=== PATIENT | male | born 1950 | race Caucasian/White ===

== ENCOUNTER 2019-02-13 00:40 | Inpatient (IN) ==
[2019-02-13 01:38] LABS: Basophils # (auto) 0.02 K/uL (0-0.2); Basophils % (auto) 0.3 %; Eosinophils % (auto) 1.3 %; Hematocrit (blood only) 48.5 % (42-52); Hemoglobin 17.1 g/dL (14.0-18.0); Immature Granulocytes # (auto) 0.02 K/uL (0.00-0.02); Immature Granulocytes % (auto) 0.3 %; Lymphocytes # (auto) 2.09 K/uL (1.2-3.4); Lymphocytes % (auto) 26.6 %; Mean Corpuscular Hemoglobin 31.8 pg (25-34); Mean Corpuscular Hgb Conc 35.3 g/dL (32-36); Mean Corpuscular Volume 90.1 fL (80-100); Mean Platelet Volume 9.8 fL (7.4-10.4); Monocytes # (auto) 0.56 K/uL (0.11-0.59); Monocytes % (auto) 7.1 %; Neutrophils # (auto) 5.08 K/uL (1.4-6.5); Neutrophils % (auto) 64.4 %; Platelet Count 216 K/uL (130-400); RDW Coefficient of Variation 12.6 % (11.5-14.5); RDW Standard Deviation 41.1 fL (36.4-46.3); Red Blood Count 5.38 M/uL (4.7-6.1); White Blood Count 7.87 K/uL (4.8-10.8)
[2019-02-13 01:46] LABS: Alanine Aminotransferase 17 U/L (12-78); Albumin Level 3.9 gm/dl (3.4-5.0); Aspartate Aminotransferase 11 U/L (15-37); BUN Creatinine Ratio 8.5 (10-20); Blood Urea Nitrogen 11 mg/dl (7-18); Calcium 8.7 mg/dl (8.5-10.1); Carbon Dioxide 31 mmol/L (21-32); Chloride 102 mmol/L (98-107); Creatinine Clr Calc Pharmacy 63.6 ml/min; Est GFR (African American) 64.8; Est GFR (Non-African American) 55.9; Glucose 129 mg/dl (70-99); Lipase 209 U/L (73-393); Potassium 3.7 mmol/L (3.5-5.1); Sodium 139 mmol/L (136-145)
[2019-02-13 01:51] LABS: Albumin Globulin Ratio 1.1 (0.9-2); Alkaline Phosphatase 131 U/L (45-117); Bilirubin,Total 0.7 mg/dl (0.2-1); Globulin 3.7 gm/dl (2.5-4.0); Total Protein 7.6 gm/dl (6.4-8.2); Troponin I < 0.015 ng/ml (0-0.045)
--- NOTE | 2019-02-13 04:14 | History & Physical Report ---
Date of Service February 13, 2019 Assessment & Plan (1) Generalized weakness: Patient presents with persistent generalized weakness, dyspnea on exertion and family history of brother at a similar age recently requiring a stented coronary artery. The patient will be admitted to telemetry for serial cardiac enzymes, serial EKG's, cardiac rhythm monitoring and a 2-D echocardiogram with Dopplers. Check a fasting lipid panel, and hemoglobin A1c. Patient should have a stress echocardiogram done prior to discharge if the above work-up is negative. We will add a FLP, HbA1c, Lyme test, vitamin B12, folic acid, ESR and OSMANY to current laboratories. Present on Admission?: Yes (2) Dyspnea on exertion: See above Present on Admission?: Yes (3) Family history of coronary artery disease in brother: See above Present on Admission?: Yes (4) Syncope: Patient did present to the ED on 02/04/2019. Work-up at that time included a negative CT of head, and CTA of head and neck. He had no further syncopal or near syncopal symptoms since that time. Present on Admission?: Yes (5) GERD (gastroesophageal reflux disease): Change omeprazole to pantoprazole 40 mg daily for formulary interchange Present on Admission?: Yes History of Present Illness Chief Complaint: The patient presents to the emergency department with persistent generalized weakness and fatigue. He presented to the emergency department on 02/04/2019 due to a syncopal episode. Primary Care Provider: Frandy Larry MD The patient is a 68-year-old male with a past medical history including GERD and syncope, who presents to the emergency department with persistent generalized weakness and fatigue. He denies chest pain or shortness of breath at rest, but does report some mild dyspnea on exertion. He has a brother has had similar symptoms at age 66 who had recently gotten a coronary artery stent. He has a normal stress test several years ago. He does admit to being more sedentary. Allergies Allergy/AdvReac Type Severity Reaction Status Date / Time Penicillins Allergy Severe Unknown Verified 02/04/19 22:40 AMOXICILLIN -- HIVES AND Allergy Unknown Unknown Uncoded 02/04/19 22:40 SWELLING IN THROAT LORTAB DIZZY /MILD NAUSEA [id number] Allergy Unknown Unknown Uncoded 02/04/19 22:40 MAY HAVE VERY MILD LATEX Allergy Unknown Unknown Uncoded 02/04/19 22:40 SENSITIVITY FROM GLOVES AT WORK NKFA Allergy Unknown Unknown Uncoded 02/04/19 22:40 Home Medications Home Medications Medication Instructions Recorded Confirmed Type omeprazole 20 mg PO DAILY 02/04/19 02/13/19 History Past Med/Surg History Social History Feels Safe at Home: Yes Smoking Status: Never smoker Review of Systems Review of Systems: The patient denies chest pain, palpitations, cough, lower extremity swelling, sore throat, fevers, chills, sweats, nausea, vomiting, diarrhea , constipation, abdominal pain, pelvic pain, blood in urine or stool, dysuria, urinary frequency or urgency, lightheadedness, dizziness, headache, memory loss, rash, abnormal bruising or bleeding, imbalance, focal weakness, numbness or tingling in arms or legs, generalized arthralgias or myalgias, back or neck pain, or night sweats. The review of systems is otherwise negative other than for that already noted above, and at least 10 systems have been reviewed. Physical Exam Physical Exam: The patient is awake, alert and oriented 3, well developed and well nourished, normocephalic and atraumatic, lying in bed and in no acute distress. HEENT--PERRL, EOMI, mucous membranes and oropharynx normal. Neck--supple. No JVD. No bruits. Thyroid normal, trachea midline, no adenopathy. Heart--normal S1 and S2. No murmurs, rubs or gallops. Lungs--clear bilaterally, no respiratory distress, no accessory muscle use. Abdomen--normal bowel sounds and soft. Nontender. Nondistended, no hernias or masses, no organomegaly. Extremities--no cyanosis or clubbing. No edema. There are good distal pulses b/l. Dermatologic--normal skin turgor, normal color, no abnormal lymph nodes, no rash. Neurologic--cranial nerves II through XII grossly intact. Rheumatologic--normal range of motion. Psychiatric--normal affect. Results & Data Vital Signs (Past 12 Hours) Vital Signs Temp Pulse Resp BP Pulse Ox 02/13/19 02:00 63 15 129/80 93 02/13/19 01:30 66 15 133/81 92 02/13/19 01:00 71 19 135/92 93 08/25/19 00:49 73 17 93 02/13/19 00:47 98 02/13/19 00:45 98.8 F 73 14 168/83 H 94 Laboratory Results Laboratory Results WBC 7.87 K/uL (4.8-10.8) 02/13/19 00:25 RBC 5.38 M/uL (4.7-6.1) 02/13/19 00:25 Hgb 17.1 g/dL (14.0-18.0) 02/13/19 00:25 Hct 48.5 % (42-52) 02/13/19 00:25 MCV 90.1 fL (80-100) 02/13/19 00:25 MCH 31.8 pg (25-34) 02/13/19 00:25 MCHC 35.3 g/dL (32-36) 02/13/19 00:25 RDW Std Deviation 41.1 fL (36.4-46.3) 02/13/19 00:25 RDW Coeff of Gisele 12.6 % (11.5-14.5) 02/13/19 00:25 Plt Count 216 K/uL (130-400) 02/13/19 00:25 MPV 9.8 fL (7.4-10.4) 02/13/19 00:25 Immature Gran % (Auto) 0.3 % 02/13/19 00:25 Neut % (Auto) 64.4 % 02/13/19 00:25 Lymph % (Auto) 26.6 % 02/13/19 00:25 Bullock % (Auto) 7.1 % 02/13/19 00:25 Eos % (Auto) 1.3 % 02/13/19 00:25 Baso % (Auto) 0.3 % 02/13/19 00:25 Immature Gran # (Auto) 0.02 K/uL (0.00-0.02) 02/13/19 00:25 Neut # (Auto) 5.08 K/uL (1.4-6.5) 02/13/19 00:25 Lymph # (Auto) 2.09 K/uL (1.2-3.4) 02/13/19 00:25 Bullock # (Auto) 0.56 K/uL (0.11-0.59) 02/13/19 00:25 Eos # (Auto) 0.10 K/uL (0-0.5) 02/13/19 00:25 Baso # (Auto) 0.02 K/uL (0-0.2) 02/13/19 00:25 Sodium 139 mmol/L (136-145) 02/13/19 00:25 Potassium 3.7 mmol/L (3.5-5.1) 02/13/19 00:25 Chloride 102 mmol/L (98-107) 02/13/19 00:25 Carbon Dioxide 31 mmol/L (21-32) 02/13/19 00:25 Anion Gap 6.0 (3-11) 02/13/19 00:25 BUN 11 mg/dl (7-18) 02/13/19 00:25 Creatinine 1.31 mg/dl (0.6-1.4) 02/13/19 00:25 Est Cr Clr Drug Dosing 63.6 ml/min 02/13/19 00:25 Est GFR ( Amer) 64.8 02/13/19 00:25 Est GFR (Non-Af Amer) 55.9 02/13/19 00:25 BUN/Creatinine Ratio 8.5 (10-20) L 02/13/19 00:25 Glucose 129 mg/dl (70-99) H 02/13/19 00:25 Calcium 8.7 mg/dl (8.5-10.1) 02/13/19 00:25 Total Bilirubin 0.7 mg/dl (0.2-1) 02/13/19 00:25 AST 11 U/L (15-37) L 02/13/19 00:25 ALT 17 U/L (12-78) 02/13/19 00:25 Alkaline Phosphatase 131 U/L (45-117) H 02/13/19 00:25 Troponin I < 0.015 ng/ml (0-0.045) 02/13/19 00:25 Total Protein 7.6 gm/dl (6.4-8.2) 02/13/19 00:25 Albumin 3.9 gm/dl (3.4-5.0) 02/13/19 00:25 Globulin 3.7 gm/dl (2.5-4.0) 02/13/19 00:25 Albumin/Globulin Ratio 1.1 (0.9-2) 02/13/19 00:25 Lipase 209 U/L (73-393) 02/13/19 00:25 TSH 3.620 uIu/ml (0.300-4.500) 02/13/19 00:25 Diagnostic Findings [facility] [place], [place] [phone] CT Scan Report Patient: ERIC NAILS LAdmit Date: 02/04/19 MR#: [id number]: [address] [facility] Acct ID:[id number]: Date: 1950[facility] Zip: [place] [address] Age: 68Location: ED Sex: M Room/Bed: Att Phy: Diagnosis: syncope Liliana Phy: Frandy Austin M.D.Service Date: 02/04/19 Fam Phy: Interpreting Phy: Price Marina MD Admit Phy: Ordering Phy: Ania Danielle DO cc: ~ CT angio neck with con CLINICAL HISTORY: syncope COMPARISON STUDY: No previous studies for comparison. TECHNIQUE: CT angiography was performed from the aortic arch to the skull base. MIP imaging was performed. The patient was scanned in a dynamic helical fashion during intravenous administration of 121 cc of Optiray 320. A dose lowering technique was utilized adhering to the principles of ALARA. CT DOSE: Technique: CT angiogram of the carotid and vertebral arteries was obtained using intravenous contrast and 3-D reconstruction. NASCET criteria was utilized. Findings: The right carotid revealed no evidence of aneurysm and no evidence of dissection. There is no evidence of hemodynamic significant stenosis. The left carotid revealed no evidence of hemodynamic significant stenosis. There is no evidence of aneurysm. There is no evidence of dissection. There is no evidence of hemodynamically significant vertebral stenosis. There is no evidence of vertebral dissection. IMPRESSION: No evidence of hemodynamically significant carotid or vertebral artery stenosis. No evidence of dissection. Electronically signed by: Price Marina M.D. 02/05/2019 6:30 AM Dictated: 02/05/19627 Transcribed: 02/05/19627 [facility] [place], [place] [phone] CT Scan Report [facility]: 02/04/19 MR#: [id number]: [address] [facility] Acct ID:[id number]: Date: [address] [place] [address] [facility] [address] Age: 68Location: ED Sex: M Room/Bed: Att Phy: Diagnosis: syncope Liliana Phy: Frandy Austin M.D.Service Date: 02/04/19 Fam Phy: Interpreting Phy: Price Marina MD Admit Phy: Ordering Phy: Ania Danielle, DO cc: ~ CT angio head w con CLINICAL HISTORY: syncope TECHNIQUE: CT angiography of the head was performed in a dynamic helical fashion during intravenous administration of 121 cc of Optiray 320. MIP imaging was performed. A dose lowering technique was utilized adhering to the principles of ALARA. CT DOSE: COMPARISON STUDY: No previous studies for comparison. FINDINGS: There are no lesion suspicious for aneurysm. There are no major intracranial branch occlusions. The dural venous sinuses appear patent. IMPRESSION: Normal study. Electronically signed by: Price Marina M.D. 02/05/2019 6:28 AM Dictated: 02/05/19625 Transcribed: 02/05/19625 [facility] [place], [place] [phone] CT Scan Report Patient: ERIC NAILS Date: 02/04/19 MR#: [id number]: [address] [facility] Acct ID:[id number]: Date: [address] [place] [address] Zip: [place] [address] Age: 68Location: ED Sex: M Room/Bed: Att Phy: Diagnosis: syncope Liliana Phy: Frandy Austin M.D.Service Date: 02/04/19 Fam Phy: Interpreting Phy: Price Marina MD Admit Phy: Ordering Phy: Ania Danielle DO cc: ~ CT head/brain wo con CLINICAL HISTORY: syncope COMPARISON STUDY: 12/03/2017 TECHNIQUE: Axial CT of the brain is performed from the vertex to the skull base. IV contrast was not administered for this examination. A dose lowering technique was utilized adhering to the principles of ALARA. CT DOSE: 1257.06 mGy.cm FINDINGS: No intra or extra-axial mass lesions are visualized. There is no CT evidence of acute cortical infarction. There is no evidence of midline shift. There is no acute hemorrhage. No calvarial fractures are visualized. There are minimal white matter hypodensities likely on a small vessel basis. There is no evidence of pathologic ventricular dilatation. There is no evidence of acute sinusitis IMPRESSION: No acute intracranial findings Electronically signed by: Price Marina M.D. 02/05/2019 6:25 AM [place], [place] [phone] XRay Report Patient: ERIC NAILS Date: 02/04/19 MR#: [id number]: [address] [facility] Acct ID:[id number]: Date: 1950[facility] Zip: [place] [address] Age: 68Location: ED Sex: M Room/Bed: Att Phy: Diagnosis: syncope Liliana Phy: Frandy Austin M.D.Service Date: 02/04/19 Fam Phy: Interpreting Phy: Froylan Garcia MD Admit Phy: Ordering Phy: Ania Danielle DO cc: ~ XR chest 1V portable CLINICAL HISTORY: syncope dyspnea COMPARISON STUDY: 12/03/2017 FINDINGS: The bones soft tissues and hemidiaphragms are normal. The cardiomedia stinal silhouette is normal. The lungs are clear. The pulmonary vasculature is normal. IMPRESSION: Negative chest. The above report was generated using voice recognition software. It may contain grammatical, syntax or spelling errors. Electronically signed by: Froylan Garcia M.D. 02/04/2019 10:27 PM Dictated: 02/04/192226 Transcribed: 02/04/192226 Code Status & VTE Plan Code Status Full code VTE Prophylaxis Plan VTE Prophylaxis will be ordered: Yes PG Care Time/CCT Total # of Minutes Spent Total Time Spent with Patient: Total time spent is greater than 50% in coordination of care (as documented) at patient's floor/unit and/or counseling patient: (1) Syncope Syncope type: unspecified Qualified Code(s): R55 - Syncope and collapse
--- NOTE | 2019-02-13 05:11 | Emergency Department Note ---
Entered by Chente Lane acting as a scribe for Rubi Lo DO History of Present Illness General Chief complaint: Cardiac Assessment Stated complaint: CHEST PAIN/DIZZY/NAUSEA Time Seen by Provider: 02/13/19 00:57 Source: patient History of Present Illness Onset (ago): hour(s) (this morning) Location: chest Severity: mild Pain Consistency: + other (persistent) Maximum Pain Intensity: 1 Quality: + other (tightness) Exacerbated By: + eating Associated symptoms: + weakness and + other (forearm tightness, hazy and unstable feeling) The patient is a 68 y/o male who presents to the ED w/ CC of persistent, mild, chest tightness beginning this morning. The patient states he has also felt really weak, hazy, and unstable as well as his chest tightness that radiates down into his left forearm. He reports his symptoms have been persistent all day and worsened within the last three hours which prompted him to call EMS. The patient notes he was evaluated in the ED 8 days ago because he fainted and was unconscious for one minute. He states at that time he did not have chest pain, but his other symptoms are similar to what he felt this evening. The patient reports he was not admitted when he was in the ED. He notes he has a history of GERD and takes Omperizol. The patient states this does not feel like a GERD flare. He reports he did not eat much today because he was weak and he did not feel well. The patient notes he was finally able to eat later this evening, and he made himself shrimp lo mein. He states his symptoms worsened slightly after eating. The patient reports he has a history of a stress test a long time ago that was normal, and he denies a history of diabetes. He notes his brother has a history of a CABG. The patient states his PCP is Dr. Larry, and he has not seen his PCP for his weakness. He reports is a part-time worker at the [employer]. Home Medications Home Medications Medication Instructions Recorded Confirmed Type omeprazole 20 mg PO DAILY 02/04/19 02/13/19 History Allergies Allergy/AdvReac Type Severity Reaction Status Date / Time Penicillins Allergy Severe Unknown Verified 02/04/19 22:40 AMOXICILLIN -- HIVES AND Allergy Unknown Unknown Uncoded 02/04/19 22:40 SWELLING IN THROAT LORTAB DIZZY /MILD NAUSEA [id number] Allergy Unknown Unknown Uncoded 02/04/19 22:40 MAY HAVE VERY MILD LATEX Allergy Unknown Unknown Uncoded 02/04/19 22:40 SENSITIVITY FROM GLOVES AT WORK NKFA Allergy Unknown Unknown Uncoded 02/04/19 22:40 Past Med/Surg History Medical History Kidney disease Surgical History No pertinent past surgical history Family History Father Prostate cancer Social History Feels Safe at Home: Yes Smoking Status: Never smoker Review of Systems See HPI for pertinent positives & negatives. and A total of 10 systems reviewed and were otherwise negative Physical Exam Vital Signs Vital Signs - 24 hr 02/13/19 00:45 02/13/19 00:47 02/13/19 00:49 Temperature 37.1 C Temperature Source Oral Sepsis Recent Fever Within 48 Hours No Sepsis New/Unexplained Change in Mental Status No Sepsis Action Taken by Nursing No Action Required Pulse Rate 73 73 Pulse Rate from SpO2 Sensor 72 73 Pulse Rhythm Regular Pulse Strength Normal Respiratory Rate 14 17 Respiratory Effort / Characteristics Non-Labored Spontaneous Respiratory Depth Normal Respiratory Pattern Regular Blood Pressure 168/83 H Blood Pressure Mean 111 Blood Pressure Position Lying Pulse Oximetry 94 98 93 Oxygen Delivery Method Room Air Room Air 02/13/19 01:00 02/13/19 01:30 02/13/19 02:00 Temperature Temperature Source Sepsis Recent Fever Within 48 Hours Sepsis New/Unexplained Change in Mental Status Sepsis Action Taken by Nursing Pulse Rate 71 66 63 Pulse Rate from SpO2 Sensor 71 66 62 Pulse Rhythm Pulse Strength Respiratory Rate 19 15 15 Respiratory Effort / Characteristics Respiratory Depth Respiratory Pattern Blood Pressure 135/92 133/81 129/80 Blood Pressure Mean 106 98 96 Blood Pressure Position Pulse Oximetry 93 92 93 Oxygen Delivery Method HEENT: Head - normocephalic and atraumatic Pupils are equal, round, and reactive to light. Extraocular eye muscles are intact, and sclera are anicteric. Nose - moist nasal mucosa without discharge. Mouth - moist buccal mucosa. Oropharynx is nonerythematous and there is no tonsillar exudate or edema noted. Neck: Supple; no JVD, nuchal rigidity, cervical lymphadenopathy, or auscultated bruits. Heart: Regular rate and rhythm. There is a normal S1 and S2 with no murmurs, clicks, or gallops appreciated. Lungs: Clear to auscultation bilaterally with no wheezes, rales, or rhonchi. Abdomen: Soft, completely nontender, nondistended, with good bowel sounds. There are no palpable pulsatile masses or hepatosplenomegaly. There is no guarding, rigidity, or rebound noted. Extremities: No evidence of cyanosis, clubbing, or edema. There are easily palpable peripheral pulses. Skin: warm and dry with good turgor and no rashes. Course 0118: The patient was evaluated in room C11B. A complete history and physical examination were performed. Nursing notes and previous electronic medical records were reviewed. IV lock was established and labs were drawn as above. A twelve-lead EKG was obtained. The patient was observed on the manager cardiac and pulse oximeter. Patient had a chest x-ray which was unremarkable 0326: Upon reevaluation, I discussed findings and results with him. He verbalized agreement of the treatment plan. The patient will be evaluated for further management and care. 0329: The patient's calculated HEART score is 4. 0409: I spoke with Dr. Hanna of the [facility] Hospitalist [facility]. The patient will be evaluated for further management and care. Medical Decision Making Differential Diagnosis Differential diagnosis includes: aortic dissection, ACS, GERD Medical Records Attestation: I reviewed the patient's medical records. Home Medications Current Medication List: was personally reviewed by me Laboratory Data Attestation: I reviewed the patient's lab results. Result diagrams: 02/13/19 00:25 02/13/19 00:25 Lab Results 02/13/19 02/13/19 Range/Units 00:25 00:25 WBC 7.87 (4.8-10.8) K/uL RBC 5.38 (4.7-6.1) M/uL Hgb 17.1 (14.0-18.0) g/dL Hct 48.5 (42-52) % MCV 90.1 (80-100) fL MCH 31.8 (25-34) pg MCHC 35.3 (32-36) g/dL RDW Std Deviation 41.1 (36.4-46.3) fL RDW Coeff of Gisele 12.6 (11.5-14.5) % Plt Count 216 (130-400) K/uL MPV 9.8 (7.4-10.4) fL Immature Gran % (Auto) 0.3 % Neut % (Auto) 64.4 % Lymph % (Auto) 26.6 % [place] % (Auto) 7.1 % Eos % (Auto) 1.3 % Baso % (Auto) 0.3 % Immature Gran # (Auto) 0.02 (0.00-0.02) K/uL Neut # (Auto) 5.08 (1.4-6.5) K/uL Lymph # (Auto) 2.09 (1.2-3.4) K/uL [place] # (Auto) 0.56 (0.11-0.59) K/uL Eos # (Auto) 0.10 (0-0.5) K/uL Baso # (Auto) 0.02 (0-0.2) K/uL Sodium 139 (136-145) mmol/L Potassium 3.7 (3.5-5.1) mmol/L Chloride 102 (98-107) mmol/L Carbon Dioxide 31 (21-32) mmol/L Anion Gap 6.0 (3-11) BUN 11 (7-18) mg/dl Creatinine 1.31 (0.6-1.4) mg/dl Est Cr Clr Drug Dosing 63.6 ml/min Est GFR ( Amer) 64.8 Est GFR (Non-Af Amer) 55.9 BUN/Creatinine Ratio 8.5 L (10-20) Glucose 129 H (70-99) mg/dl Calcium 8.7 (8.5-10.1) mg/dl Total Bilirubin 0.7 (0.2-1) mg/dl AST 11 L (15-37) U/L ALT 17 (12-78) U/L Alkaline Phosphatase 131 H (45-117) U/L Troponin I < 0.015 (0-0.045) ng/ml Total Protein 7.6 (6.4-8.2) gm/dl Albumin 3.9 (3.4-5.0) gm/dl Globulin 3.7 (2.5-4.0) gm/dl Albumin/Globulin Ratio 1.1 (0.9-2) Lipase 209 (73-393) U/L TSH 3.620 (0.300-4.500) uIu/ml Imaging Data Attestation: I personally reviewed and interpreted this imaging study as follows: My Impression: XR chest 1V portable: narrow mediastinum, no pulmonary findings. Blood Pressure Blood Pressure Findings: Normal blood pressure Blood Pressure Disposition: did not require urgent referral MDM Narrative The patient is a 68 y/o male who presents to the ED w/ CC of persistent, mild, chest tightness beginning this morning with radiation into the left arm. Patient was seen here in the emergency department 1 week ago for a syncopal event. He had a significant work-up at that time which was negative. Since then, the patient describes feeling somewhat fatigued. He did develop chest tightness throughout the day today which became worse tonight and seemed to radiate into the left forearm. The patient does have a family history of heart disease with his brother having stents placed in his early 60s. EKG was unremarkable and troponin was negative. However, the description of his chest tightness with radiation to the left arm in conjunction with his episode of syncope last week, I felt the patient warranted a cardiology evaluation possible stress echo. The patient will be evaluated by the [facility] Hospitalist. He is symptom- free at this time. Impression & Plan Substernal chest pain, Syncope Discharge Plan Visit Data Chief Complaint: Cardiac Assessment Stated Complaint: CHEST PAIN/DIZZY/NAUSEA ED Provider: Rubi Lo Discharge Problem: Substernal chest pain, Syncope Patient Disposition: Being Evaluated by Hospitalist Forms Stand Alone Forms: My [facility] Perception Software Prescriptions Prescriptions: No Action omeprazole 20 mg Capsule,Delayed Release(Dr/Ec) 20 mg PO DAILY RF: 0 Referrals Referrals: Frandy Larry MD [Primary Care Provider] - Discharge Problem: Syncope Qualifiers: Syncope type: unspecified Qualified Code(s): R55 - Syncope and collapse The scribe's documentation has been prepared under my direction and personally reviewed by me in its entirety. I confirm that the note above accurately reflects all work, treatment, procedures, and medical decision making performed by me.
[2019-02-13 05:38] LABS: Chol HDL Ratio 7; Cholesterol 176 mg/dl (0-200); HDL Cholesterol 26 mg/dl; LDL Cholesterol Calculated 105 mg/dl; Triglycerides 227 mg/dl (0-150); VLDL Cholesterol 45 mg/dl
[2019-02-13 06:06] LABS: Lyme Ab IgG w/WB Rflx Negative (Negative); Lyme Ab IgM w/WB Rflx Negative (Negative)
--- NOTE | 2019-02-13 06:51 | XRay Report ---
XR chest 1V portable HISTORY: 68 years-old Male Chest Pain acute atypical chest pain COMPARISON: Chest radiograph and CTA neck 02/04/2019 TECHNIQUE: Portable AP view of the chest FINDINGS: Cardiomediastinal and hilar silhouettes are within normal limits. 6 mm calcified granuloma of the lef t lung apex there is unchanged. No pneumothorax, pleural effusion, focal airspace consolidation or ov ert pulmonary edema. Cardiomediastinal and hilar silhouettes are within normal limits. The bones appe ar grossly intact. IMPRESSION: No acute process. The above report was generated using voice recognition software. It may contain grammatical, syntax o r spelling errors. Electronically signed by: Frank Cotton M.D. 02/13/2019 6:50 AM
[2019-02-13] MEDS ORDERED: ALUMINUM/MAGNESIUM SUSP 30 ML UDC PO PRN (07:15)
[2019-02-13] MEDS ORDERED: ACETAMINOPHEN 325 MG TAB PO PRN (07:15)
[2019-02-13] MEDS ORDERED: POLYETHYLENE (MIRALAX) 17 GM PACK PO PRN (07:15)
[2019-02-13] MEDS ORDERED: ONDANSETRON INJ 2 MG/ML 2 ML VIAL IV PRN (07:15)
[2019-02-13] MEDS ORDERED: MAGNESIUM HYDROXIDE SUSP 30 ML UDC PO PRN (07:15)
[2019-02-13] MEDS ORDERED: PNEUMOCOCCAL ADMINISTRATION CHARGE ONE (09:00)
[2019-02-13] MEDS ORDERED: PNEUMOCOCCAL POLYSACCHARIDES 25 MCG/0.5 ML VIAL/SYR IM ONE (09:00)
[2019-02-13 09:38] LABS: Folate (Folic Acid) 13.47 ng/ml (>5.38)
[2019-02-13] MEDS ORDERED: PERFLUTREN LIPID MICROSPHERE (DEFINITY) IV ONE (10:00)
[2019-02-13 11:30] LABS: Partial Thromboplastin Time 28.2 Seconds (21.0-31.0); Prothrombin Time 10.4 Seconds (9.0-12.0)
[2019-02-13] MEDS: HEPARIN SOD 5,000 UNIT/0.5 ML VIAL SQ SCH ×2 (13:39→20:36)
[2019-02-14 06:02] LABS: Estimated Average Glucose 111 mg/dl; Hemoglobin A1C 5.5 % (4.5-5.6)
[2019-02-14] MEDS: HEPARIN SOD 5,000 UNIT/0.5 ML VIAL SQ SCH ×3 (10:04→23:33)
--- NOTE | 2019-02-14 13:57 | Ultrasound Report ---
BILATERAL LOWER EXTREMITY VENOUS DOPPLER CLINICAL HISTORY: syncope COMPARISON STUDY: No previous studies for comparison. TECHNIQUE: Sonography of the deep venous system of the bilateral lower extremities was performed. Co mpression and augmentation were evaluated. FINDINGS: The bilateral common femoral, superficial femoral and popliteal veins were compressible. A ugmentation was normal. Flow was shown within the deep calf vessels. IMPRESSION: No evidence of deep venous thrombus within the bilateral lower extremities. Electronically signed by: Abdirashid Rose M.D. 02/14/2019 1:55 PM
--- NOTE | 2019-02-14 13:59 | Ultrasound Report ---
CAROTID ARTERY ULTRASOUND CLINICAL HISTORY: syncope COMPARISON STUDY: CTA of the neck February 04, 2019. TECHNIQUE: Real-time, grayscale, and color Doppler sonography of the carotid and vertebral arteries w as performed. Images were viewed in the transverse and longitudinal planes. FINDINGS: There is mild atherosclerotic plaque. Velocity measurements are listed below. COMMON CAROTID PEAK SYSTOLIC VELOCITY (CM/S): RIGHT 114 LEFT 104 ICA PEAK SYSTOLIC VELOCITY (CM/S): RIGHT 73 LEFT 85 Systolic ratios between the internal to common carotid arteries are normal. Antegrade flow is seen in the vertebral arteries. The external carotid arteries are patent. Blood pressure in the right arm measured 121/82. Blood pressure in the left arm measured 138/80. IMPRESSION: No evidence of a hemodynamically significant stenosis. Electronically signed by: Abdirashid Rose M.D. 02/14/2019 1:58 PM
--- NOTE | 2019-02-14 19:11 | Hospitalist Progress Note ---
Date of Service February 14, 2019 Assessment & Plan (1) Generalized weakness: Patient presents with persistent generalized weakness, dyspnea on exertion and family history of brother at a similar age recently requiring a stented coronary artery. The patient will be admitted to telemetry for serial cardiac enzymes, serial EKG's, cardiac rhythm monitoring and a 2-D echocardiogram with Dopplers. Check a fasting lipid panel, and hemoglobin A1c. Patient should have a stress echocardiogram done prior to discharge if the above work-up is negative. We will add a FLP, HbA1c, Lyme test, vitamin B12, folic acid, ESR and OSMANY to current laboratories. (2) Dyspnea on exertion: See above (3) Family history of coronary artery disease in brother: See above (4) Syncope: Patient did present to the ED on 02/04/2019. Work-up at that time included a negative CT of head, and CTA of head and neck. Further on carotid Doppler is normal bilaterally, venous no deep nose thrombosi s, echocardiogram normal. Will consult cardiology in the morning for additional advisor input possibly patient would benefit from Holter monitor. He had no further syncopal or near syncopal symptoms since that time. (5) GERD (gastroesophageal reflux disease): Change omeprazole to pantoprazole 40 mg daily for formulary interchange Subjective Patient seen and examined at the bedside. Status post syncope that occurred approximately 2 weeks ago. After that he developed generalized weakness. He said the weakness is slowly improving. Echocardiogram EF 55-60, no regional wall motion abnormality no left ventricular hypertrophy. EKG normal sinus rhythm 61. Patient denies fever chills chest pain shortness of breath abdominal pain frequency urgency syncope near syncope. Carotid Doppler study no evidence of a hemodynamically significant stenosis. Venous Doppler no evidence of deep nose thrombosis within the bilateral lower extremities. Review of Systems Review of Systems: All systems reviewed & are unremarkable except as noted in HPI & below Physical Exam Constitutional: WD/WN, vitals as above well developed Eyes: PERRL, conjunctivae normal, anicteric sclerae ENMT: external ear and nose normal, oropharynx normal Neck: trachea midline, no thyromegaly Respiratory: normal respiratory effort, lungs clear to auscultation Cardiovascular: RRR, no murmur, no edema Chest (Breasts): normal inspection/palpation of breasts Gastrointestinal (Abdomen): normal bowel sounds, soft, nontender, no hepatosplenomegaly Musculoskeletal: no cyanosis or clubbing, extremities motor strength 5/5 Skin: no rashes, warm and dry Neurologic: patellar DTR's 2+ bilat, sensation intact Psychiatric: A+Ox3, euthymic affect Lymphatic: no cervical or axillary lymphadenopathy Results & Data Vital Signs (Past 12 Hours) Vital Signs Temp Pulse Pulse Resp BP Pulse Ox 02/14/19 18:32 72 02/14/19 16:00 36.6 C 77 20 147/87 H 96 02/14/19 11:49 36.7 C 62 18 133/76 94 02/14/19 07:30 53 L PG Care Time/CCT Total # of Minutes Spent Total Time Spent with Patient: Total time spent is greater than 50% in coordination of care (as documented) at patient's floor/unit and/or counseling patient: (1) Syncope Syncope type: unspecified Qualified Code(s): R55 - Syncope and collapse
[2019-02-15] MEDS: HEPARIN SOD 5,000 UNIT/0.5 ML VIAL SQ SCH ×2 (09:09→23:04)
[2019-02-15 15:23] LABS: Anti Nuclear Antibody Screen NEGATIVE (NEGATIVE)
--- NOTE | 2019-02-15 15:59 | Hospitalist Progress Note ---
Date of Service February 15, 2019 Assessment & Plan (1) Generalized weakness: Patient presents with persistent generalized weakness, dyspnea on exertion and family history of brother at a similar age recently requiring a stented coronary artery. The patient will be admitted to telemetry for serial cardiac enzymes, serial EKG's- sinus , Echocardiogram EF 55-60, no regional wall motion abnormality no left ventricular hypertrophy. EKG normal sinus rhythm 61.MRI/MRA brain and neck pending. Troponin negative. -fasting lipid panel-cholesterol normal, elevated triglycerides 227. A1c 5.5, TSH 3.620 -started fish oil -consult cardiology -event monitor signed script for 30 days. (2) Dyspnea on exertion: See above (3) Family history of coronary artery disease in brother: See above (4) Syncope: Patient did present to the ED on 02/04/2019. Work-up at that time included a negative CT of head, and CTA of head and neck. Further on carotid Doppler is normal bilaterally, venous no deep nose thrombosis, echocardiogram normal. consult cardiology (5) GERD (gastroesophageal reflux disease): Change omeprazole to pantoprazole 40 mg daily for formulary interchange Subjective Patient seen and examined at the bedside. Status post syncope that occurred approximately 2 weeks ago. After that he developed generalized weakness. He said the weakness is slowly improving. Echocardiogram EF 55-60, no regional wall motion abnormality no left ventricular hypertrophy. EKG normal sinus rhythm 61. Patient denies fever chills chest pain shortness of breath abdominal pain frequency urgency syncope near syncope. Carotid Doppler study no evidence of a hemodynamically significant stenosis. Venous Doppler no evidence of deep nose thrombosis within the bilateral lower extremities.MRI brain and neck pending. Review of Systems 2 Review of Systems: All systems reviewed & are unremarkable except as noted in HPI & below Physical Exam Constitutional: WD/WN, vitals as above well developed Eyes: PERRL, conjunctivae normal, anicteric sclerae ENMT: external ear and nose normal, oropharynx normal Neck: trachea midline, no thyromegaly Respiratory: normal respiratory effort, lungs clear to auscultation Cardiovascular: RRR, no murmur, no edema Chest (Breasts): normal inspection/palpation of breasts Gastrointestinal (Abdomen): normal bowel sounds, soft, nontender, no hepatosplenomegaly Musculoskeletal: no cyanosis or clubbing, extremities motor strength 5/5 Skin: no rashes, warm and dry Neurologic: patellar DTR's 2+ bilat, sensation intact Psychiatric: A+Ox3, euthymic affect Lymphatic: no cervical or axillary lymphadenopathy Results & Data Vital Signs (Past 12 Hours) Vital Signs Temp Pulse Pulse Resp BP Pulse Ox 02/15/19 15:20 36.4 C L 68 18 155/88 H 94 02/15/19 11:21 36.7 C 69 18 143/85 H 95 02/15/19 07:26 76 02/15/19 07:12 36.5 C 61 18 156/82 H 96 02/15/19 04:00 36.6 C 59 L 20 146/79 H 94 PG Care Time/CCT Total # of Minutes Spent Total Time Spent with Patient: Total time spent is greater than 50% in coordination of care (as documented) at patient's floor/unit and/or counseling patient: (1) Syncope Syncope type: unspecified Qualified Code(s): R55 - Syncope and collapse
[2019-02-15] MEDS ORDERED: LORazepam 1 MG TAB PO STA (16:02)
--- NOTE | 2019-02-15 18:08 | Magnetic Resonance Report ---
MR angio neck wo con HISTORY: 68 years-old Male syncope acute syncope COMPARISON: CTA had and neck 02/04/2019 TECHNIQUE: MRA of the neck was obtained without the use of IV contrast. All measurements were obtaine d according to NASCET criteria. Multidimensional MIPS were obtained from the source images. FINDINGS: Decreased flow related signal about the proximal left subclavian artery is likely artifactual. Large [id number] fashion buyer localizer images demonstrate no gross abnormality. Bilateral common and internal carotid arteries appear widely patent. Mild luminal narrowing of less than 50% involves the proximal left ICA which is likely secondary to atheromatous plaque as noted on comparison CTA. Codominant vert ebral arteries also appear to be widely patent. No aneurysm, dissection, high-grade stenosis or proxi mal branch occlusion. IMPRESSION: Unremarkable MRA of the neck. The above report was generated using voice recognition software. It may contain grammatical, syntax o r spelling errors. Electronically signed by: Frank Cotton M.D. 02/15/2019 6:07 PM
[2019-02-15] MEDS ORDERED: GADOBUTROL 65ML VIAL IV PRN (18:13)
--- NOTE | 2019-02-15 18:24 | Magnetic Resonance Report ---
MR brain wo/w con HISTORY: 68 years-old Male syncope acute syncope with weakness COMPARISON: MRA of the neck of same day, CTA head and neck 11/04/2018, brain MRI 12/03/2017. TECHNIQUE: Multiplanar multisequence MRI of the brain was obtained both with and without the use of 8 .0 mL Gadavist FINDINGS: Certified Residential Medication Aide localizer images demonstrate no gross extracranial abnormality. No restricted diffusion to sugg est acute or subacute infarction. Midline structures including the corpus callosum, brainstem, optic chiasm, pituitary and pineal glands appear unremarkable on the sagittal T1 series. No cerebellar tons illar herniation. Degenerative changes are noted about the imaged cervical spine. No acute intracrani al hemorrhage, midline shift, abnormal extra-axial collection, hydrocephalus or intracranial mass. No significant T2/FLAIR signal abnormalities about the brain parenchyma. There is no abnormal intra-axi al or extra-axial enhancement identified. Major flow voids at the level of the skull base appear bullock nt. Orbits are unremarkable. Mastoid air cells are clear. Minimal mucosal thickening ethmoid air cell s and nasal turbinates. Paranasal sinuses are otherwise clear. Skull and soft tissues are unremarkabl e. IMPRESSION: 1. No acute intracranial abnormality. 2. No abnormal enhancement. The above report was generated using voice recognition software. It may contain grammatical, syntax o r spelling errors. Electronically signed by: Frank Cotton M.D. 02/15/2019 6:22 PM
[2019-02-16 04:02] VITALS: O2SAT 96
[2019-02-16] MEDS: HEPARIN SOD 5,000 UNIT/0.5 ML VIAL SQ SCH (07:30)
[2019-02-16 11:17] VITALS: BP 143/77; PULSE 68; TEMP 97.3
--- NOTE | 2019-02-27 20:39 | Discharge Summary ---
Date of Service February 16, 2019 Admission HPI Per Admitting Provider The patient is a 68-year-old male with a past medical history including GERD and syncope, who presents to the emergency department with persistent generalized weakness and fatigue. He denies chest pain or shortness of breath at rest, but does report some mild dyspnea on exertion. He has a brother has had similar symptoms at age 66 who had recently gotten a coronary artery stent. He has a normal stress test several years ago. He does admit to being more sedentary. Principal Diagnosis generalized weakness Discharge Exam Constitutional: WD/WN, vitals as above well developed Eyes: PERRL, conjunctivae normal, anicteric sclerae ENMT: external ear and nose normal, oropharynx normal Neck: trachea midline, no thyromegaly Respiratory: normal respiratory effort, lungs clear to auscultation Cardiovascular: RRR, no murmur, no edema Gastrointestinal (Abdomen): normal bowel sounds, soft, nontender, no he patosplenomegaly Musculoskeletal: no cyanosis or clubbing, extremities motor strength 5/5 Skin: no rashes, warm and dry Neurologic: patellar DTR's 2+ bilat, sensation intact Psychiatric: A+Ox3, euthymic affect Lymphatic: no cervical or axillary lymphadenopathy Discharge Data Allergies Allergy/AdvReac Type Severity Reaction Status Date / Time Penicillins Allergy Severe Hives Verified 02/23/19 09:03 latex Allergy Mild Rash Verified 02/23/19 09:03 acetaminophen [From Lortab] AdvReac Dizziness Verified 02/23/19 09:03 hydrocodone [From Lortab] AdvReac Dizziness Verified 02/23/19 09:03 Consultations 02/13/19 03:27 ED Decision to Admit Stat 02/13/19 07:15 Consult Case Management - Discharge Planning Routine Ordered Studies 02/14/19 12:08 US carotid doppler BI Stat US venous doppler LE BI Stat 02/15/19 14:18 MR angio neck wo con Routine MR brain wo/w con Routine Hospital Course (1) Generalized weakness: Patient presents with persistent generalized weakness, dyspnea on exertion and family history of brother at a similar age recently requiring a stented coronary artery. The patient will be admitted to telemetry for serial cardiac enzymes, serial EKG's- sinus , Echocardiogram EF 55-60, no regional wall motion abnormality no left ventricular hypertrophy. EKG normal sinus rhythm 61.MRI/MRA brain and neck pending. Troponin negative. -fasting lipid panel-cholesterol normal, elevated triglycerides 227. A1c 5.5, TSH 3.620 -started fish oil -consult cardiology -event monitor signed script for 30 days. Patient will f/u cardio as an outpatient. Unsure as to cause of SO, but no further studies needed during hospital stay. (2) Dyspnea on exertion: See above (3) Family history of coronary artery disease in brother: See above (4) Syncope: Patient did present to the ED on 02/04/2019. Work-up at that time included a negative CT of head, and CTA of head and neck. Further on carotid Doppler is normal bilaterally, venous no deep nose thrombosis, echocardiogram normal. (5) GERD (gastroesophageal reflux disease): Change omeprazole to pantoprazole 40 mg daily for formulary interchange Total Time Total Time Spent Total Time Spent (In Minutes): 32 Total Time Includes: Examination of the Patient, Discharge Planning and Medication Reconciliation Discharge Plan Discharge Items Patient Disposition: Home - Self-Care Reason For Visit: GENERALIZED WEAKNESS AND FATIGUE Discharge Diagnosis: Generalized weakness Discharge Goals: Decrease discomfort Activity: Resume your previous activity Non-emergency contact: Primary Care Provider Call non-emergency contact if: you have any medication questions Follow-up/Referrals: Brendan Bird PA-C [Physician Waxer] - 02/23/19 9:00 am (Please, follow up at [facility] Office with Brendan Bird PA-C on ThursdayFebruary 23 at 9:00 am. *The office is located in [address] of [facility]. This is the big building located next to this [facility]. If you need to change this appointment, call the office at [phone].) Frandy Larry MD [Primary Care Provider] - 02/23/19 11:30 am (Please, follow up with Dr. Sammie Lawrence on ThursdayFebruary 23 at 11:30 am. *If you need to change this appointment, call the office at [phone]. A CARDIAC EVENT MONITOR WILL BE MAILED TO YOUR HOME. THE KIT WILL INCLUDE EASY TO FOLLOW INSTRUCTIONS. THE RESULTS WILL BE SENT TO DR. SAMMIE LAWRENCE AND THE [facility].) Diet: Regular Addtl Provider Instructions: Will discharge you today. Plan is to place you on a cardiac event monitor. Will also schedule a followup with your primary care and tool grinder operator surface Your ASCVD risk is 22% which is why we will place you on medicine to help prevent a heart attack and a stroke. Prescriptions: New atorvastatin 40 mg tablet 40 mg PO HS Qty: 30 RF: 0 aspirin [Aspir-81] 81 mg tablet,delayed release (DR/EC) 81 mg PO DAILY Qty: 30 RF: 0 Continued omeprazole 20 mg Capsule,Delayed Release(Dr/Ec) 20 mg PO DAILY RF: 0 Stand-Alone Forms: [facility] Discharge Orders: Discharge Order (Routine); Ordered 02/16/19 Ordered By: Humberto Sanchez Admission Data Admit Date/Time: 02/15/19 15:50 Attending Provider: Humberto Sacnhez Admit Provider: Steve Hanna Primary Care Provider: Frandy Larry Other Providers: Steve Hanna ; Humberto Sanchez Service: Telemetry Medical Other Interventions: Discharge Summary Assessment (RN) Last Done: 02/16/19 14:29 DC Date/Time DO NOT enter until pt leaves facility: 02/16/19 16:46
== END 2019-02-16 16:46 | disposition home or self-care (01) | DRG 948 ==
LOC: ED 00:40 → 2W 00:40 → SUATTDRO 02-15 15:50